=== PATIENT | female | born 1960 | race African-American/Black ===

== ENCOUNTER 2017-03-29 09:48 | Emergency (ER) | payer OTHER ==
[~2017-03-29] VITALS: Ht 175.3 cm; Wt 72.6 kg
[2017-03-29 10:05] VITALS: BP 135/87
--- NOTE | 2017-03-29 10:21 | Emergency Room Report ---
History of Present Illness General Chief Complaint: Chest Pain Source: Patient (PANKAJ BAHENA D.O.) Present Illness HPI Patient is a fairly complicated history Has had recent bilateral mastectomies about 6 months ago patient finished chemotherapy and radiation Today presents with complaints of chest pain Midsternal heavy and burning at times patient also reports increased nausea vomiting Nasal discharge Denies any shortness of breath or pleurisy denies any calf pain denies any fall or trauma describes the pain as 01/26 (PANKAJ BAHENA D.O.) Allergies: Coded Allergies: No Known Allergies (Unverified , 03/29/17) Patient History Past Medical History: see triage record Pertinent Family History: none Reviewed Nursing Documentation: PMH: Agreed, PSxH: Agreed (PANKAJ BAHENA D.O.) Nursing Documentation-PMH Past Medical History: No History, Except For Hx Hypertension: No - CHRONIC BACK PAIN Hx Cancer: Yes - mastectomy RIGHT SIDE (PANKAJ BAHENA D.O.) Review of Systems All Other Systems: negative except mentioned in HPI (PANKAJ BAHENA D.O.) Physical Exam Vital Signs Date Time Temp Pulse Resp B/P (MAP) Pulse Ox O2 Delivery O2 Flow Rate FiO2 03/29/17 09:55 99.9 128 20 152/88 96 Room Air Sp02 EP Interpretation: reviewed, normal General Appearance: mild distress - in acute pain Eyes: bilateral eye PERRL, bilateral eye EOMI ENT: hearing grossly normal, normal pharynx, TMs + canals normal, uvula midline Neck: full range of motion, supple Respiratory: lungs clear Cardiovascular #1: regular rate, rhythm, no edema Gastrointestinal: non tender, soft, no mass Musculoskeletal: normal inspection Neurologic: alert, oriented x3, responsive Skin: normal color, no rash Lymphatic: no adenopathy (PANKAJ BAHENA D.O.) Medical Decision Making Diagnostic Impression: Primary Impression: ACS (acute coronary syndrome) ER Course Patient is a fairly complex patient with multiple differential to consideration including but not limited to cardiac cardiopulmonary and vascular emergencies Patient's baseline blood work are normal However the patient continued to complain of discomfort off-and-on at this time requiring aspirin and nitroglycerin To consideration for pulmonary embolism is low and the patient has not had CAT scan imaging but requires further inpatient care Given the patient's insurance coverage it was requested for transfer at this time Labs Test 9/10/17 10:19 White Blood Count 4.9 K/UL (4.8-10.8) Red Blood Count 4.44 M/UL (4.20-5.40) Hemoglobin 13.5 G/DL (12.0-16.0) Hematocrit 41.4 % (37.0-47.0) Mean Corpuscular Volume 93 FL (80-99) Mean Corpuscular Hemoglobin 30.5 PG (27.0-31.0) Mean Corpuscular Hemoglobin Concent 32.7 G/DL (32.0-36.0) Red Cell Distribution Width 12.4 % (11.6-14.8) Platelet Count 442 K/UL (150-450) Mean Platelet Volume 5.7 FL (6.5-10.1) Neutrophils (%) (Auto) 59.3 % (45.0-75.0) Lymphocytes (%) (Auto) 27.3 % (20.0-45.0) Monocytes (%) (Auto) 10.1 % (1.0-10.0) Eosinophils (%) (Auto) 1.3 % (0.0-3.0) Basophils (%) (Auto) 2.1 % (0.0-2.0) Sodium Level 141 mEQ/L (135-145) Potassium Level 3.4 mEQ/L (3.4-4.9) Chloride Level 104 mEQ/L (98-107) Carbon Dioxide Level 25 mEQ/L (20-30) Anion Gap 12 (5-15) Blood Urea Nitrogen 8 mg/dL (7-23) Creatinine 0.8 mg/dL (0.5-0.9) Estimat Glomerular Filtration Rate > 60 mL/min (>60) Glucose Level 122 mg/dL (74-106) Calcium Level 9.2 mg/dL (8.6-10.2) Total Bilirubin 0.2 mg/dL (0.0-1.2) Aspartate Amino Transf (AST/SGOT) 28 U/L (5-40) Alanine Aminotransferase (ALT/SGPT) 17 U/L (3-33) Alkaline Phosphatase 83 U/L (35-104) Total Creatine Kinase 75 U/L (26-140) Creatine Kinase MB < 1.5 ng/mL (< 3.8) Creatine Kinase MB Relative Index 2.0 Troponin I < 0.30 ng/mL (<=0.30) Total Protein 7.2 g/dL (6.6-8.7) Albumin 3.6 g/dL (3.5-5.2) Globulin 3.6 g/dL Albumin/Globulin Ratio 1.0 (1.0-2.7) Lipase 19 U/L (< 60) (PANKAJ BAHENA D.O.) ER Course Informed by registratin/insurance that patient refused tx to [facility] Was arranged transport to [facility] instead Endorsed to Dr Garrido at 236pm Stable for transfer (LINDA CASTANEDA M.D.) EKG Diagnostic Results Rate: tachycardiac Rhythm: NSR ST Segments: other - Nonspecific ST and T-wave changes (PANKAJ BAHENA D.O.) Rhythm Strip Diag. Results EP Interpretation: yes Rate: 88 Rhythm: NSR, no PVC's, no ectopy (PANKAJ BAHENA D.O.) Other X-Ray Diagnostic Results Other X-Ray Diagnostic Results : # of Views/Limited Vs Complete: 1 View Indication: Pain EP Interpretation: Yes Interpretation: no dislocation, no soft tissue swelling, no fractures Impression: No acute disease Electronically Signed by: Pankaj Bahena DO (PANKAJ BAHENA D.O.) Last Vital Signs Date Time Temp Pulse Resp B/P (MAP) Pulse Ox O2 Delivery O2 Flow Rate FiO2 03/29/17 09:55 99.9 128 20 152/88 96 Room Air Status: improved (PANKAJ BAHENA D.O.) Status: improved (LINDA CASTANEDA M.D.) Disposition: ADMITTED INPATIENT Condition: Serious Referrals: [facility] [place],REFERRING (PCP) PANKAJ BAHENA D.O. Mar 29, 2017 10:21 LINDA CASTANEDA M.D. Mar 29, 2017 14:37
[2017-03-29] MEDS ORDERED: HYDROmorphone 1 MG, DiphenhydrAMINE 25 MG in NS 55 ML IV ONE (10:30)
[2017-03-29 10:34] LABS: BASOPHILS % (AUTO) 2.1 % (0.0-2.0); EOSINOPHILS % (AUTO) 1.3 % (0.0-3.0); LYMPHOCYTES % (AUTO) 27.3 % (20.0-45.0); MEAN CORPUSCULAR HEMOGLOBIN 30.5 PG (27.0-31.0); MEAN CORPUSCULAR HGB CONC 32.7 G/DL (32.0-36.0); MEAN CORPUSCULAR VOLUME 93 FL (80-99); MEAN PLATELET VOLUME 5.7 FL (6.5-10.1); MONOCYTES % (AUTO) 10.1 % (1.0-10.0); NEUTROPHILS % (AUTO) 59.3 % (45.0-75.0); PLATELET COUNT 442 K/UL (150-450); RED BLOOD COUNT 4.44 M/UL (4.20-5.40); RED CELL DISTRIBUTION WIDTH 12.4 % (11.6-14.8); WHITE BLOOD COUNT 4.9 K/UL (4.8-10.8)
[2017-03-29] MEDS ORDERED: DiphenhydrAMINE 50mg/ml Inj ONE (10:39)
[2017-03-29] MEDS ORDERED: HYDROmorphone 1mg/ml Carpuject ONE (10:39)
[2017-03-29 10:56] LABS: ALANINE AMINOTRANSFERASE 17 U/L (3-33); ANION GAP 12 (5-15); ASPARTATE AMINO TRANSFERASE 28 U/L (5-40); CALCIUM 9.2 mg/dL (8.6-10.2); CARBON DIOXIDE 25 mEQ/L (20-30); CHLORIDE 104 mEQ/L (98-107); CREATININE 0.8 mg/dL (0.5-0.9); GLOMERULAR FILTRATION RATE > 60 mL/min (>60); HEMOLYSIS 3; LIPASE 19 U/L (< 60); POTASSIUM 3.4 mEQ/L (3.4-4.9); SODIUM 141 mEQ/L (135-145); TOTAL PROTEIN 7.2 g/dL (6.6-8.7)
[2017-03-29 10:57] LABS: TROPONIN I < 0.30 ng/mL (<=0.30)
[2017-03-29 11:06] LABS: CKMB < 1.5 ng/mL (< 3.8)
[2017-03-29] MEDS ORDERED: Aspirin Baby 81mg ORAL ONE (11:15)
[2017-03-29] MEDS ORDERED: Nitroglycerin 2% oint pkt TOPIC ONE (11:15)
[2017-03-29 11:21] VITALS: BP 159/81
--- NOTE | 2017-03-29 11:38 | Diagnostic Imaging Report ---
Indication: Chest pain Technique: XRAY CHEST 1 V Comparison:None Findings: There is minimal apical pleural thickening. Lungs are likely are. Heart is normal in size. No pleural fluid. Bones are unremarkable. Impression: Minimal biapical pleural thickening. Otherwise negative.
[2017-03-29] MEDS ORDERED: NORCO 10-325 T1 EACH ORAL (12:03)
[2017-03-29] MEDS ORDERED: GABAPENTIN100 MG ORAL (12:03)
[2017-03-29] MEDS ORDERED: XANAX0.25 MG ORAL (12:03)
[2017-03-29] MEDS ORDERED: SOMA350 MG PO (12:03)
[2017-03-29] MEDS ORDERED: ALPRAZolam 0.25mg tab ORAL SCH (13:00)
[2017-03-29] MEDS ORDERED: DuoNeb 0.5-3(2.5)mg/3ml neb HHN PRN (14:00)
[2017-03-29] MEDS ORDERED: Mylanta II UD 30ml ORAL PRN (14:00)
[2017-03-29] MEDS ORDERED: Promethazine/Codeine 5ml UD ORAL PRN (14:00)
[2017-03-29] MEDS ORDERED: Nitroglycerin Subl 0.4mg tab (Bottle Of 25) SL PRN (14:00)
[2017-03-29 14:54] VITALS: BP 138/71
[2017-03-29] MEDS ORDERED: Miralax 17gm pkt ORAL PRN (15:00)
[2017-03-29] MEDS ORDERED: Cefepime HCl 1 GM in D5W 55 ML IV SCH (21:00)
[2017-03-29] MEDS ORDERED: Heparin 5000 units/ml inj SUBQ SCH (21:00)
--- NOTE | 2017-03-30 18:26 | Cardiology Report ---
APPROVED REPORT EXAM: Two-dimensional and M-mode echocardiogram with Doppler and color Doppler. INDICATION Left ventricular function M-Mode DIMENSIONS IVSd0.8 (0.7-1.1cm)Left Atrium (MM)2.7 (1.6-4.0cm) LVDd4.5 (3.5-5.6cm)Aortic Root2.6 (2.0-3.7cm) PWd0.9 (0.7-1.1cm)Aortic Cusp Exc.1.6 (1.5-2.0cm) LVDs2.3 (2.5-4.0cm) PWs1.2 cm Technically difficult study due to poor acoustic windows. Normal left ventricular chamber size, systolic function and wall motion. Left ventricular ejection fraction estimated to be 60-65%. Concentric left ventricular hypertrophy. Anterior Echo-free space, may be due to pericardial fat or effusion. All other cardiac chamber sizes are within normal limits. Focal aortic valve sclerosis with adequate cusp excursion Thickened mitral valve leaflets with normal excursion. Mitral annulus and aortic root calcification. Pulmonic valve not well visualized. Normal tricuspid valve structure. IVC is normal in size with physiologic collapse. A color flow and spectral Doppler study was performed and revealed: No aortic regurgitation. No mitral regurgitation. Left ventricular diastolic dysfunction grade 1. No tricuspid regurgitation.
--- NOTE | 2017-03-30 18:36 | Cardiology Report ---
APPROVED REPORT EKG Measurement Heart [id number] Sinus tachycardia Low voltage QRS Cannot rule out Anterior infarct, age undetermined Abnormal ECG
== END 2017-03-29 15:00 | disposition short-term general hospital (02) ==
LOC: EMR 09:59
DX: I24.9 Acute ischemic heart disease, unspecified (principal); Z90.13 Acquired absence of bilateral breasts and nipples; Z85.3 Personal history of malignant neoplasm of breast; R11.2 Nausea with vomiting, unspecified; G89.29 Other chronic pain; R00.0 Tachycardia, unspecified
CPT/HCPCS: 36415; 71010; 80053; 82550; 82553; 83690; 84484; 85025; 93005; 93306; 96365; 96372; 96375; 99285; J1170; J1200; J2405